=== PATIENT | male | born 1965 ===

== ENCOUNTER 2017-10-15 06:53 | Day surgery (SDC) | payer OTHER | END 2017-10-15 12:20 | disposition home or self-care (01) | LOC: AMB-ENDOS 06:53 | DX: D13.1 Benign neoplasm of stomach (principal) ==

== ENCOUNTER 2017-10-15 07:00 | Outpatient (CLI) | payer OTHER | END 2017-10-15 12:00 | disposition home or self-care (01) | LOC: LAB 07:00 | DX: E66.01 Morbid (severe) obesity due to excess calories (principal); R10.13 Epigastric pain; R73.9 Hyperglycemia, unspecified; E56.9 Vitamin deficiency, unspecified ==

== ENCOUNTER 2017-10-19 11:12 | Outpatient (CLI) | payer OTHER | END 2017-10-19 12:00 | disposition home or self-care (01) | LOC: NUCLEAR 11:12 | DX: E66.01 Morbid (severe) obesity due to excess calories (principal); R00.0 Tachycardia, unspecified ==

== ENCOUNTER 2021-07-23 17:19 | Emergency (ER) | payer OTHER ==
[~2021-07-23] VITALS: Ht 177.8 cm; Wt 76.2 kg
[2021-07-23] MEDS ORDERED: LEVOTHYROXINE25 MCG (17:35)
[2021-07-23] MEDS ORDERED: IRBESARTAN75 MG (17:35)
[2021-07-23] MEDS ORDERED: SYNTHROID100 MCG (17:35)
== END 2021-07-23 23:44 | disposition home or self-care (01) ==
LOC: ER 17:19
DX: R10.84 Generalized abdominal pain (principal)